=== PATIENT | female | born 1935 | race Caucasian/White ===

== ENCOUNTER → 2016-09-20 | Outpatient (CLI) | payer MEDICARE, OTHER ==
[~2016-09-20] MED LIST: ATORVASTATIN; FLEXERIL10 MG PO; LASIX; LASIX 40MG TABL40 MG PO; LASIX20 MG PO; LASIX40 MG PO; LIPITOR 10MG10 MG PO; LOTREL 10 MG-201 CAP PO; MINIPRESS2 MG PO; MOTRIN 400400 MG/TAB PO; MOTRIN 800800 MG/TAB PO; NORCO 325 MG-51 TAB PO; PERCOCET 325 MG1 TA2 PO; TIMOLOL 0.5% OP10 ML OP; TIMOLOL 0.5% OP10 ML OU; TYLENOL EXTRA500 M1 PO; minipress
== END ==
LOC: MC.RAD 13:00
DX: Z12.31 Encounter for screening mammogram for malignant neoplasm of breast (principal)
CPT/HCPCS: G0202

== ENCOUNTER 2016-10-03 15:10 | Emergency (ER) | payer MEDICARE, OTHER ==
[~2016-10-03] VITALS: Ht 165.1 cm; Wt 90.9 kg
[2016-10-03 15:19] VITALS: TEMP 97.8
[2016-10-03 17:51] VITALS: BP 143/83; PULSE 80
== END 2016-10-03 17:53 | disposition home or self-care (01) ==
LOC: COL.ER 15:10
DX: M25.552 Pain in left hip (principal); M25.562 Pain in left knee; M25.572 Pain in left ankle and joints of left foot; I10 Essential (primary) hypertension; Z87.891 Personal history of nicotine dependence; Z85.3 Personal history of malignant neoplasm of breast
CPT/HCPCS: J1885

== ENCOUNTER → 2017-09-21 | Outpatient (CLI) | payer MEDICARE, OTHER | LOC: MC.RAD 13:00 | DX: Z12.31 Encounter for screening mammogram for malignant neoplasm of breast (principal); Z90.12 Acquired absence of left breast and nipple; Z85.3 Personal history of malignant neoplasm of breast ==

== ENCOUNTER → 2018-10-29 | Outpatient (CLI) | payer MEDICARE, OTHER | LOC: MC.RAD 14:45 | DX: Z12.31 Encounter for screening mammogram for malignant neoplasm of breast (principal); Z85.3 Personal history of malignant neoplasm of breast; Z90.12 Acquired absence of left breast and nipple ==

== ENCOUNTER → 2020-01-08 | Outpatient (CLI) | payer MEDICARE, OTHER | LOC: MC.RAD 14:30 | DX: Z12.31 Encounter for screening mammogram for malignant neoplasm of breast (principal); Z85.3 Personal history of malignant neoplasm of breast; Z90.12 Acquired absence of left breast and nipple ==

== ENCOUNTER 2020-05-17 19:19 | Emergency (ER) | payer MEDICARE, OTHER ==
[~2020-05-17] VITALS: Ht 165.1 cm; Wt 90.9 kg
[2020-05-17 19:20] VITALS: TEMP 98.3
[2020-05-17 20:21] LABS: BASO # 0.1 (0.0-0.2); BASO % 0.7 % (0.0-2.0); EOS # 0.3 (0.0-0.7); EOS % 2.9 % (0-4.0); GRAN # 6.8 (1.4-6.5); GRAN % 70.7 % (42.2-75.2); HEMOGLOBIN 10.7 g/dl (12.5-16.0); LYMPH # 1.4 (1.2-3.4); MEAN CELL VOLUME 88 fl (80.0-100.0); MEAN CORPUSCULAR HEMOGLOBIN 29 pg (27.0-31.0); MEAN CORPUSCULAR HGB CONC 33 g/dl (33.0-37.0); MEAN PLATELET VOLUME 9.1 fl (7.4-10.4); MONO # 1.1 (0.1-0.6); MONO % 11.2 % (1.7-9.3); PLATELET COUNT 324 K/mm3 (130-400); RED BLOOD COUNT 3.72 M/mm3 (4.10-5.30); REDCELL DISTRIBUTION WIDTH-CV 13.8 % (11.5-14.5)
[2020-05-17 20:23] LABS: HEMATOCRIT 32.7 % (37.0-47.0)
[2020-05-17 20:36] LABS: ALANINE AMINOTRANSFERASE 15 U/L (4-34); ALBUMIN 3.9 gm/dL (3.5-5.0); ALKALINE PHOSPHATASE 89 U/L (50-136); ANION GAP 9 mmol/L (7-16); AST,SGOT 26 U/L (15-37); BILIRUBIN,TOTAL 0.3 mg/dL (0.0-1.0); BLOOD UREA NITROGEN 29 mg/dL (7-17); CALCIUM 8.7 mg/dL (8.4-10.2); CARBON DIOXIDE 25 mmol/L (22-30); CHLORIDE 103 mmol/L (98-107); CREATININE, serum 1.15 (0.52-1.25); GLUCOSE 134 mg/dL (74-106); POTASSIUM 3.7 mmol/L (3.4-5.0); SODIUM 137 mmol/L (137-145); TOTAL PROTEIN 7.1 gm/dL (6.4-8.2)
[2020-05-17 20:45] LABS: COLLECTION METHOD CLEAN CATCH
[2020-05-17 21:09] LABS: TROPONIN-I < 0.012 ng/mL (0.000-0.035)
[2020-05-17 21:19] LABS: MUCOUS Present /lpf; PH 5 (5-8); URINE APPEARANCE Hazy; URINE BACTERIA None Seen /hpf; URINE BILIRUBIN Negative (NEGATIVE); URINE BLOOD Negative (NEGATIVE); URINE COLOR Yellow; URINE GLUCOSE Negative (NEGATIVE); URINE KETONE Negative (NEGATIVE); URINE LEUKOCYTE ESTERASE Negative (NEGATIVE); URINE NITRATE Negative (NEGATIVE); URINE PROTEIN(semi-quant) Negative (NEGATIVE); URINE RBC 0-2 /hpf; URINE UROBILINOGEN Negative (NEGATIVE); URINE WBC 0-2 /hpf
[2020-05-17 23:10] VITALS: BP 148/63; PULSE 74
== END 2020-05-17 23:10 | disposition home or self-care (01) ==
LOC: COL.ER 19:19
PROVIDERS: Emergency Medicine
DX: T14.8XXA Other injury of unspecified body region, initial encounter (principal); R07.89 Other chest pain; M25.552 Pain in left hip; R41.82 Altered mental status, unspecified; I10 Essential (primary) hypertension; Z88.0 Allergy status to penicillin; Z88.2 Allergy status to sulfonamides; Z88.6 Allergy status to analgesic agent; Z87.891 Personal history of nicotine dependence; W19.XXXA Unspecified fall, initial encounter
CPT/HCPCS: Q9967

== ENCOUNTER 2020-06-21 18:12 | Inpatient (IN) | payer MEDICARE, OTHER ==
[~2020-06-21] VITALS: Ht 165.1 cm; Wt 75.0 kg
[2020-06-21 18:53] LABS: BASO # 0.1 (0.0-0.2); BASO % 0.4 % (0.0-2.0); EOS % 0.3 % (0-4.0); GRAN # 11.4 (1.4-6.5); GRAN % 83.7 % (42.2-75.2); HEMATOCRIT 34.7 % (37.0-47.0); LYMPH # 0.9 (1.2-3.4); LYMPH % 6.7 % (20.0-51.0); MEAN CELL VOLUME 88 fl (80.0-100.0); MEAN CORPUSCULAR HEMOGLOBIN 28 pg (27.0-31.0); MEAN CORPUSCULAR HGB CONC 32 g/dl (33.0-37.0); MEAN PLATELET VOLUME 9.3 fl (7.4-10.4); MONO # 1.1 (0.1-0.6); MONO % 8.4 % (1.7-9.3); PLATELET COUNT 345 K/mm3 (130-400); RED BLOOD COUNT 3.96 M/mm3 (4.10-5.30); REDCELL DISTRIBUTION WIDTH-CV 13.8 % (11.5-14.5)
[2020-06-21 19:06] LABS: ALBUMIN 4.1 gm/dL (3.5-5.0); BILIRUBIN,TOTAL 0.7 mg/dL (0.0-1.0); CALCIUM 9.3 mg/dL (8.4-10.2); CREATININE, serum 0.9 (0.52-1.25); TOTAL PROTEIN 7.7 gm/dL (6.4-8.2)
[2020-06-21 21:27] LABS: COLLECTION METHOD CLEAN CATCH
[2020-06-21 21:40] LABS: MUCOUS Present /lpf; PH 6 (5-8); SQUAMOUS EPITHELIAL 0-2 /hpf; URINE APPEARANCE Clear; URINE BACTERIA None Seen /hpf; URINE BILIRUBIN Negative (NEGATIVE); URINE BLOOD Negative (NEGATIVE); URINE COLOR Yellow; URINE GLUCOSE Negative (NEGATIVE); URINE KETONE Trace (NEGATIVE); URINE LEUKOCYTE ESTERASE Trace (NEGATIVE); URINE NITRATE Negative (NEGATIVE); URINE PROTEIN(semi-quant) Negative (NEGATIVE); URINE UROBILINOGEN Negative (NEGATIVE)
[2020-06-21 22:34] VITALS: BP 133/52; PULSE 77; TEMP 98.4
[2020-06-22 03:46] VITALS: BP 136/57; PULSE 98; TEMP 97.6
--- NOTE | 2020-06-22 03:47 | NUR ---
2215-PT ARRIVES TO FLOOR PER CART. ALERT AND O TO SELF ONLY. HX AND ASSESSMENT OBTAINED TO BEST ABILITY D/T DEMENTIA. PT ADMIT FOR WEAKNESS AND FALL/UNSAFE DC. ORDERS OBTAINED AND FOLLOWED. PT BED ALARM ON. PT WAS REPORTED TO BE DOWN AT HOME FOR 12 HRS.
[2020-06-22 07:21] LABS: BASO # 0.1 (0.0-0.2); BASO % 0.7 % (0.0-2.0); EOS # 0.2 (0.0-0.7); EOS % 1.9 % (0-4.0); GRAN # 7.3 (1.4-6.5); GRAN % 69.7 % (42.2-75.2); LYMPH # 1.7 (1.2-3.4); LYMPH % 15.7 % (20.0-51.0); MEAN CELL VOLUME 89 fl (80.0-100.0); MEAN CORPUSCULAR HGB CONC 31 g/dl (33.0-37.0); MEAN PLATELET VOLUME 10.1 fl (7.4-10.4); MONO # 1.2 (0.1-0.6); MONO % 11.6 % (1.7-9.3); PLATELET COUNT 324 K/mm3 (130-400); RED BLOOD COUNT 3.46 M/mm3 (4.10-5.30)
[2020-06-22 07:22] LABS: HEMATOCRIT 30.9 % (37.0-47.0); HEMOGLOBIN 9.7 g/dl (12.5-16.0); MEAN CORPUSCULAR HEMOGLOBIN 28 pg (27.0-31.0)
[2020-06-22 07:28] LABS: ALBUMIN 3.2 gm/dL (3.5-5.0); BILIRUBIN,TOTAL 0.5 mg/dL (0.0-1.0); CALCIUM 8.9 mg/dL (8.4-10.2); CREATININE, serum 0.87 (0.52-1.25); POTASSIUM 3.7 mmol/L (3.4-5.0); TOTAL PROTEIN 6.3 gm/dL (6.4-8.2)
[2020-06-22 08:02] VITALS: BP 134/54; PULSE 75; TEMP 97.9
--- NOTE | 2020-06-22 09:43 | NUR ---
JOHNY attended clinical rounds. The patient was difficult to rouse and would not respond to the hospitalist. SW contacted the patient's daughter, Livia Escobedo (ph#[phone]), to discuss discharge plan. The patient lives alone in [place]. Livia states that she lives in [place], but checks in the on the patient frequently. She reports that the patient needs assistance with ADLs and has a cane and scoots around in office chairs. Livia reports that the patient's hygiene is bad and that she has a difficult time making it to the bathroom on time. She does not receive a home health services. Livia reports that the patient was suppose to have an appointment with Sabra at [facility] to get assessed for services in the home, but her sister talked her out of the appointment. The patient's PCP is Dr. Taiwo Shelton and she receives her medications from [facility]. Livia reports that the patient does not have a DPOA-HC. She states that the patient's and that she has three living children: Livia, Adeline Ruffin (ph#[phone]), and Nasir Horvath. Adeline and Nasir live in [place]. JOHNY informed Livia how the patient's legal next of kin and decision makers is all three of her children. Livia verbalized understanding. Due to the patient's frequent falls and being somnolent during rounds, SW discussed post-acute rehab. JOHNY informed her how the patient could have to private pay, since she is observation. Livia verbalized understanding and would like to go ahead and send referrals to where ever can take her. JOHNY contacted and faxed a referral to [facility], and [facility]. Awaiting screens.
[2020-06-22 12:07] VITALS: BP 142/55; PULSE 69; TEMP 98
[2020-06-22 12:19] LABS: TRICYCLIC ANTIDEPRESS URINE NEGATIVE
--- NOTE | 2020-06-22 13:24 | NUR ---
Patient up to recliner. x1 assist with walker. No further needs at this time.
[2020-06-22] MEDS ORDERED: SYNTHROID0.1 MG/TAB PO (16:34)
[2020-06-22] MEDS ORDERED: CYMBALTA 30MG30 MG PO (16:35)
--- NOTE | 2020-06-22 16:50 | NUR ---
Contacted Maia Jaramillo, patients daughter brought in home meds, med req complete. Patient has hemorrhoids, new order for cream.
[2020-06-22 17:01] VITALS: BP 136/65; PULSE 68; TEMP 98.1
--- NOTE | 2020-06-22 18:02 | NUR ---
Patient has done better this afternoon, has been more alert and oriented. Sat up in recliner throughout the day. Patient has been up to BSC multiple times. Patient denies pain or further needs at this time. Will report off to mash tub cooker operator.
--- NOTE | 2020-06-22 20:00 | NUR ---
Report received, assumed care for machine taper. Assessment complete. A&O to self-confused converstation. States she just wants to go home. Rating pain to bilat hips 8/10 on pain scale-described as ache-offered tylenol-states it doesnt work. Hospitalist JEANETTE Singh notified and new orders placed. Denies nausea/shortness of breath. Plan of care discussed for this shift to include HS meds/pain control/calling for questions/concerns. Verbalizes understanding denies needs. Call light in reach. Will monitor.
[2020-06-22 20:02] VITALS: BP 149/69; PULSE 85; TEMP 98.2
--- NOTE | 2020-06-22 21:44 | NUR ---
Motrin/tylenol given per dr order for bilat hip pain rated 6/10 on pain scale described as constant ache.
[2020-06-23 20:00] VITALS: BP 146/58; PULSE 64; TEMP 98
--- NOTE | 2020-06-23 20:00 | NUR ---
Report received, assumed care for welder 2nd shift. Assessment complete. VS stable. A&Ox3-some confused conversation. Denies pain/nausea/shortness of breath. Purewick in place-huy care provided. Plan of care discussed for this shift to include HS meds/pain control/calling for questions/concerns. Verbalizes understanding/denies needs. Call light in reach. Will monitor.
[2020-06-24] VITALS (7 sets, daily range): BP systolic 132–160; BP diastolic 52–73; PULSE 65–83; TEMP 97.3–98.6
--- NOTE | 2020-06-24 02:00 | NUR ---
Called with c/o hip pain. Rating pain 8/10 on pain scale-described as constant throbbing. Rhododendron given per dr order. Repositioned in bed with pillow support. Call light in reach. Will monitor.
--- NOTE | 2020-06-24 04:45 | NUR ---
Called with c/o pain to right hip. Rating pain 4/10 on pain scale-described as constant throbbing. Motrin given per dr order. Repositioned in bed. Will monitor.
[2020-06-24 06:47] LABS: HEMOGLOBIN 10.1 g/dl (12.5-16.0); MEAN CELL VOLUME 89 fl (80.0-100.0); MEAN CORPUSCULAR HEMOGLOBIN 28 pg (27.0-31.0); MEAN CORPUSCULAR HGB CONC 32 g/dl (33.0-37.0); MEAN PLATELET VOLUME 10.2 fl (7.4-10.4); PLATELET COUNT 308 K/mm3 (130-400); RED BLOOD COUNT 3.59 M/mm3 (4.10-5.30)
[2020-06-24 06:55] LABS: HEMATOCRIT 31.9 % (37.0-47.0)
[2020-06-24 07:02] LABS: ALBUMIN 3.2 gm/dL (3.5-5.0); BILIRUBIN,TOTAL 0.3 mg/dL (0.0-1.0); CALCIUM 8.7 mg/dL (8.4-10.2); CREATININE, serum 1.07 (0.52-1.25); POTASSIUM 4.2 mmol/L (3.4-5.0); TOTAL PROTEIN 6.3 gm/dL (6.4-8.2)
--- NOTE | 2020-06-24 08:52 | NUR ---
*Late entry-06/23/20* JOHNY attended clinical rounds. The patient's status was changed to inpatient. JOHNY then met with the patient to discuss rehab. The patient is agreeable to rehab. SW also discussed a DPOA-HC. The patient states that she likes the idea that all three of her children have to come to a mutual agreement, if she does not have one done. The patient was interested in obtaining a DPOA-HC form though. JOHNY provided. The patient would like to talk to her children first, before pursuing completing a DPOA-HC. JOHNY contacted and faxed updates to [facility] and [facility]. JOHNY consulted IPR Director, Jessica. JOHNY contacted and updated the patient's daughter, Adeline.
--- NOTE | 2020-06-24 09:24 | NUR ---
Patient resting in recliner, call light in reach and alarm set. Patient is forgetful, but A&OX3 not remembering what month it was. Patient in a pleasent mood at this time. Patient denies pain at this time. Will continue to monitor.
--- NOTE | 2020-06-24 09:35 | NUR ---
0645-PUREWICK IN PLACE,BUT PT's bed wet and attends; pt. states she needs to void and suction on;pt. cleaned and up to chair for meal. Hands and face washed; max to comb hair-pt. states her hands hurt from arthritis.
--- NOTE | 2020-06-24 11:17 | NUR ---
SW faxed therapy notes and updates to [facility] and [facility].
[2020-06-24 15:48] LABS: CALCIUM 8.6 mg/dL (8.4-10.2); CREATININE, serum 0.96 (0.52-1.25); POTASSIUM 3.7 mmol/L (3.4-5.0)
--- NOTE | 2020-06-24 15:53 | NUR ---
Anurag, at [facility], reports that they are able to accept tomorrow or Sunday and that they received auth from the patient's insurance. Carol, at [facility], reports that they have also submitted for auth. JOHNY contacted and updated the patient's daughter, Livia. Livia is hopeful that [facility] can take. JOHNY informed Livia that if [facility] cannot, then we would be looking at the patient going to [facility]. Livia verbalized understanding.
--- NOTE | 2020-06-24 20:10 | NUR ---
Medicated with HS meds including Sulphur for pain to left hip. Removed lidoderm patch. Assisted to BSC with one, gait belt and walker. Was incontinent of urine prior to getting up. Back to bed with bed alarm on.
--- NOTE | 2020-06-24 20:15 | NUR ---
Patient was seen by therapy this morning. Patient reports pain to her left hip and pain patch was placed to that area. Patient was given prn motrin through the day and it her pain seemed like it was managed well until this evening. Patient is very forgetful and would get up from her recliner without using her call light multiple times during the shift. Patient was redirected and would stay in a pleasent mood. Patient curently resting in bed, call light in reach and bed alarm set. Reported off to night nurse.
--- NOTE | 2020-06-24 22:00 | NUR ---
Medicated with Tylenol 650mg po for left hip pain.
--- NOTE | 2020-06-24 23:00 | NUR ---
Pt impulsive, setting off bed alarm. Assisted with ambulation in hallway with gait belt and walker, does well with one person. Back to bed and appears sleepy.
[2020-06-25 00:05] LABS: BASO # 0.1 (0.0-0.2); BASO % 0.6 % (0.0-2.0); EOS # 0.4 (0.0-0.7); EOS % 3.7 % (0-4.0); GRAN # 6.8 (1.4-6.5); GRAN % 66.6 % (42.2-75.2); HEMATOCRIT 30.3 % (37.0-47.0); HEMOGLOBIN 9.8 g/dl (12.5-16.0); LYMPH # 1.7 (1.2-3.4); LYMPH % 16.8 % (20.0-51.0); MEAN CELL VOLUME 89 fl (80.0-100.0); MEAN CORPUSCULAR HEMOGLOBIN 29 pg (27.0-31.0); MEAN CORPUSCULAR HGB CONC 32 g/dl (33.0-37.0); MEAN PLATELET VOLUME 9.9 fl (7.4-10.4); MONO # 1.2 (0.1-0.6); MONO % 11.9 % (1.7-9.3); PLATELET COUNT 306 K/mm3 (130-400); REDCELL DISTRIBUTION WIDTH-CV 13.8 % (11.5-14.5)
--- NOTE | 2020-06-25 00:55 | NUR ---
Medicated with [place] 1 tab for left hip pain and dose of Melatonin 9mg po at this time. Pt continues to holler out and set bed alarm off with attempting to get out of bed on own.
--- NOTE | 2020-06-25 01:30 | NUR ---
MOTRIN 600MG PO GIVEN AT THIS TIME FOR CONTINUED LEFT HIP PAIN.
--- NOTE | 2020-06-25 05:00 | NUR ---
HAS RESTED WELL WITH MELATONIN. PUREWICK IS OUT, DEPENDS ARE ON.
[2020-06-25 06:08] VITALS: BP 151/58; PULSE 79; TEMP 97.6
--- NOTE | 2020-06-25 06:14 | NUR ---
Medicated with scheduled AM Synthroid, [place] for pain to left hip. Depends changed d/t incontinence.
[2020-06-25 07:57] VITALS: BP 167/88; PULSE 72; TEMP 98.4
--- NOTE | 2020-06-25 08:20 | NUR ---
Patient alert and oriented, answers questions appropriately, some responses delayed but correct. See assessment. Ambulates with assist x1 with FWW and gait belt, gait steady. No c/o pain or discomfort.
[2020-06-25] MEDS ORDERED: TYLENOL 325MG325 MG PO (10:28)
[2020-06-25] MEDS ORDERED: MOTRIN 400400 MG/TAB PO (10:28)
[2020-06-25] MEDS ORDERED: ANUSOL-HC2.5% TOP (10:29)
[2020-06-25] MEDS ORDERED: BLUE-EMU LIDOC1 EACH TP (10:29)
[2020-06-25] MEDS ORDERED: LASIX 20MG TABL20 MG PO (10:31)
--- NOTE | 2020-06-25 10:50 | NUR ---
JOHNY followed up with Carol at [facility]. Carol reports that they have not heard back from insurance yet. JOHNY then met with the patient and her daughter, Livia, to update. Livia has concerns about [facility] and would really prefer [facility]. The patient states that she would prefer [facility] and was agreeable to go to [facility]. JOHNY updated [facility]. Carol, at [facility], reports that they are able to accept the patient and are able to take the patient without having the prior auth yet. She states that the auth is pending still, because the other facility has already submitted and received it. They could re-submit for auth after the other facility canceled it. JOHNY updated the patient and her daughter, Livia. The patient states that she would prefer [facility]. Livia would also like to pursue with [facility]. JOHNY contacted Anurag at [facility] and requested that they cancel their auth. Anurag reports that she will inform their business office. JOHNY updated Carol at [facility]. JOHNY updated the clinical team.
[2020-06-25 11:37] VITALS: BP 167/88; PULSE 72; TEMP 98.4
[2020-06-25 12:17] VITALS: BP 119/56; PULSE 73; TEMP 97.7
--- NOTE | 2020-06-25 13:22 | NUR ---
Patient transfered to [facility] via wheelchair with transportation staff at 1320. Paperwork sent. Report called to
--- NOTE | 2020-06-25 13:30 | NUR ---
The patient is to discharge today, 06/25, to [facility] for a skilled stay. Transportation was scheduled at 1300, via [facility]. JOHNY informed the patient's RN and her daughter, Livia. They were all agreeable to the time. No additional needs at this time.
== END 2020-06-25 13:20 | DRG 93 ==
LOC: COL.ER 18:12 → MEDICAL 21:24 → SURG 22:18
PROVIDERS: Family Medicine; Student in an Organized Health Care Education/Training Program; ADMIT Hospitalist
DX: G92 Toxic encephalopathy (principal); R52 Pain, unspecified; T40.605A Adverse effect of unspecified narcotics, initial encounter; R53.1 Weakness; D64.9 Anemia, unspecified; I10 Essential (primary) hypertension; D72.829 Elevated white blood cell count, unspecified; E03.9 Hypothyroidism, unspecified; Z20.822 Contact with and (suspected) exposure to COVID-19; F32.9 Major depressive disorder, single episode, unspecified; M19.90 Unspecified osteoarthritis, unspecified site; F41.9 Anxiety disorder, unspecified; R53.81 Other malaise; W19.XXXA Unspecified fall, initial encounter; F17.210 Nicotine dependence, cigarettes, uncomplicated; E78.5 Hyperlipidemia, unspecified; Y92.009 Unspecified place in unspecified non-institutional (private) residence as the place of occurrence of the external cause; Y93.9 Activity, unspecified; Z85.3 Personal history of malignant neoplasm of breast; Z90.710 Acquired absence of both cervix and uterus; Z88.0 Allergy status to penicillin; Z88.2 Allergy status to sulfonamides; Z88.6 Allergy status to analgesic agent; Z91.81 History of falling
CPT/HCPCS: 99232-AI; 99239; G0378; J0696; J1650; J7030

== ENCOUNTER → 2020-08-05 | Outpatient (CLI) | payer MEDICARE, OTHER ==
[~2020-08-05] MED LIST changes: +ANUSOL HC CREAM30 GM TP; +ANUSOL-HC2.5% TOP; +ASPI325T6 PO; +ASPIRIN E.C. 8181 MG PO; +BLUE-EMU LIDOC1 EACH TP; +CYMBALTA 30MG30 MG PO; +DECADRON6 MG PO; +IBU400 MG PO; +LASIX 20MG TABL20 MG PO; +LIDO2%JEL30 TOP; +LIPITOR20 MG PO; +PLAVIX 75MG TAB75 MG PO; +SENOKOT S 50 MG1 TAB PO; +SYNTHROID0.1 MG/TAB PO; +TYLENOL 325MG325 MG PO; +TYLENOL 500MG500 MG PO; +ULTRAM 50MG TAB50 MG PO
--- NOTE | 2020-08-10 08:46 | NUR ---
Patient admitted to room 6 with use of walker and oriented to room. Voices understanding of surgery and consent signed. Daughter in room. Medication list reviewed and patient states that she has been taking Motrin 400mg po every 6 hours for left hip pain. Dr. Chung notitied. Will cancel surgery and Dr. Chung will come and talk to the patient and daughter.
--- NOTE | 2020-08-10 09:30 | NUR ---
Dr. Chung here to talk with the patient and daughter. Informed the patient that surgery will be cancelled due to not stopping Motrin. Dr Chung answered all questions. Patient maybe discharged to home and the office will call with follow surgery date.
--- NOTE | 2020-08-10 09:35 | NUR ---
Patient assisted with dressing and assisted into wheelchair. Taken to the front door per wheelchair and assisted into vehicle driven by daugbasim.
== END ==
LOC: COL.LAB 08:00 → INPTSU 08-10 08:07 → SURG 08-10 08:07 → INPTSU 08-10 09:35 → SURG 08-10 11:00 → EDSTATUS 08-10 11:00
DX: Z01.812 Encounter for preprocedural laboratory examination (principal); Z20.822 Contact with and (suspected) exposure to COVID-19
CPT/HCPCS: OP

== ENCOUNTER → 2020-08-09 | Outpatient (CLI) | payer MEDICARE, OTHER | LOC: COL.LAB 10:41 | DX: Z01.812 Encounter for preprocedural laboratory examination (principal); K64.1 Second degree hemorrhoids; I12.9 Hypertensive chronic kidney disease with stage 1 through stage 4 chronic kidney disease, or unspecified chronic kidney disease; N18.32 Chronic kidney disease, stage 3b; E03.9 Hypothyroidism, unspecified; R29.6 Repeated falls; D64.9 Anemia, unspecified; M16.12 Unilateral primary osteoarthritis, left hip; M89.49 Other hypertrophic osteoarthropathy, multiple sites; Z85.3 Personal history of malignant neoplasm of breast ==

== ENCOUNTER 2020-08-11 10:16 | Inpatient (IN) | payer MEDICARE, OTHER ==
[~2020-08-11] VITALS: Ht 167.6 cm; Wt 75.4 kg
[~2020-08-11 10:16] MED LIST changes: -ANUSOL HC CREAM30 GM TP; -ASPI325T6 PO; -ASPIRIN E.C. 8181 MG PO; -DECADRON6 MG PO; -IBU400 MG PO; -LIDO2%JEL30 TOP; -LIPITOR20 MG PO; -PLAVIX 75MG TAB75 MG PO; -SENOKOT S 50 MG1 TAB PO; -TYLENOL 500MG500 MG PO; -ULTRAM 50MG TAB50 MG PO
[2020-08-16] VITALS (11 sets, daily range): BP systolic 130–163; BP diastolic 54–81; PULSE 69–87; TEMP 96.9–98.4
--- NOTE | 2020-08-16 06:22 | NUR ---
TO RM 8 PER WC BY NURSING. ASSISTED WITH TRANSFER TO BED AND ASSISTED TO CHANGE IN HOSPITAL GOWN. ALERT ORIENTED X3, VERBALIZED UNDERSTANDING AND SIGNED CONSENT.
[2020-08-16] MEDS ORDERED: TYLENOL 500MG500 MG PO (06:23)
[2020-08-16] MEDS ORDERED: ANUSOL HC CREAM30 GM TP (06:25)
[2020-08-16] MEDS ORDERED: IBU400 MG PO (06:26)
[2020-08-16] MEDS ORDERED: LOTREL 10 MG-201 CAP PO (06:28)
[2020-08-16] MEDS ORDERED: LASIX 40MG TABL40 MG PO (06:30)
--- NOTE | 2020-08-16 10:55 | NUR ---
PATIENT ADMITED INTO ROOM 325 POST OP LTH. PATIENT ORIENTED TO PERSON BUT DISPLAYS CONFUSION, ASKING THE SAME QUESTIONS OVER AND OVER. PATIENT HAS HX OF DEMENTIA. FAMILY AT BEDSIDE. VSS. PATIENT DROWSY AND RESTING COMFORTABLY. DRESSING TO LLE IS CD&I AND ICE PACK INPLACE. TEDS & SCD'S TO BLE. HEAD TO TOE ASSESSMENT COMPLETED BY ERICKA STUDENT & NURSE, SEE STUDENT CHARTING. ORIENTED TO ROOM. CALL LIGHT IN REACH. BED ALARM ON.
--- NOTE | 2020-08-16 20:48 | NUR ---
Pt. laying in bed with eyes closed, respirations equal and unlabored. Pt. does open eyes to verbal stimuli. Vitals stable. Pt. falls back to sleep quickly after being woke. Shift assessment complete. INT to rt. hand patent. Pt. does not appear to be in pain per FLACC. Call light within reach.
[2020-08-17 04:21] VITALS: BP 144/59; PULSE 81; TEMP 97.6
[2020-08-17 07:24] LABS: HEMOGLOBIN 10.3 g/dl (12.5-16.0)
[2020-08-17 07:27] LABS: HEMATOCRIT 32.9 % (37.0-47.0)
[2020-08-17 08:00] VITALS: BP 120/50; PULSE 82; TEMP 98.5
--- NOTE | 2020-08-17 08:00 | NUR ---
AGREE WITH CAPSTONE STUDENT ASSESSMENT, SEE CHARTING.
--- NOTE | 2020-08-17 08:00 | NUR ---
PATIENT DROWSY BUT EASILY AWOKEN. PATIENT IS ALSO CONFUSED, REPEATS SELF, AND NEEDS TO BE REORIENTED FREQUENTLY. VSS. NO COMPLAINTS OF PAIN OR N/V AT THIS TIME. MORNING MEDS PASSED. HEAD TO TOE ASSESSMENT COMPLETED. LUNG SOUNDS ARE CLEAR IN ALL LOBES. HEART SOUNDS ARE REGULAR AND NORMAL. BOWEL SOUNDS ARE ACTIVE IN ALL FOUR QUADRANTS. PATIENT DENIES ANY PAIN OR TENDERNESS IN THE LOWER EXTREMITIES. NO REDNESS OR ABNORMAL WARMTH IN THE CALVES. PATIENT IS ABLE TO WIGGLE TOES AND FEEL TOUCH ON OPERATIVE LEFT LEG. DRESSING IS CLEAN DRY AND INTACT ON LEFT HIP. AARTI HOSE AND SCDS IN PLACE. WILL CONTINUE TO MONITOR. BED LEFT IN THE LOWEST POSITION AND CALL LIGHT LEFT WITHIN REACH.
[2020-08-17 12:04] VITALS: BP 96/43; PULSE 76; TEMP 97.8
--- NOTE | 2020-08-17 12:24 | NUR ---
First visit from the flight kitchen manager. No needs right now.
--- NOTE | 2020-08-17 12:26 | NUR ---
Evaluation Analyst attempted to meet with patient to discuss discharge planning, however patient was sleeping and did not wake when SW entered her room. JOHNY contacted patient's daughter, Livia (ph#[phone]) to discuss discharge planning. Patient lives alone in [place], however has family that check in on her often. Patient sees Dr. Shelton for primary care and obtains most medications from the [facility] program. Patient also obtains medications from [facility] as needed. Patient has a walker at home and Livia reports patient was mostly independent with ADLS. JOHNY reviewed PT/OT recommendation for post acute rehab. Livia is in agreement and advised she discussed this with the patient and her sister last week. Livia advised their preferences are 1) [place] and 2)[facility]. JOHNY then contacted patient's other daughter, Adeline to review discharge plan. Adeline confirmed the above preferences. Adeline states patient does not have Advance Directives but this is something they have tried to convince patient to complete these. JOHNY to follow up. JOHNY faxed referrals to [facility] and [facility]. JOHNY also faxed to [facility] for authorization.
[2020-08-17 16:38] VITALS: BP 128/51; PULSE 85; TEMP 97.7
--- NOTE | 2020-08-17 18:00 | NUR ---
PATIENT SLEPT MOST OF THE DAY AWAY. SHE WAS VERY TIRED TODAY. PATIENT NOW C/O PAIN IN LLE. GAVE PRN PAIN MEDS. PATIENT ALSO NOTED TO BE INCONTINENT OF URINE. COMPLETE BED CHANGE DONE AND PATIENT REPOSITIONED TO COMFORT. CALL LIGHT IN REACH. BED ALARM ON. PATIENT ORIENTED X2 BUT STILL DISPLAYS OCCATIONAL CONFUSION/FORGETFULNESS.
[2020-08-17 20:18] VITALS: BP 125/47; PULSE 86; TEMP 98.3
--- NOTE | 2020-08-17 21:33 | NUR ---
Patient eating dinner upon enter the room. Shift assessment completed. Patient A/O x2. Patient denies any pain or discomfort. Denies SOB or N/V. Left hip area occlusive dressing C/D/I. NS running at 100ml/hr via right hand. All scheduled meds given per JUN. Call light within reach. Patient denies any needs at this time.
[2020-08-18 00:41] VITALS: BP 136/53; PULSE 85; TEMP 97.5
[2020-08-18 04:41] VITALS: BP 126/94; PULSE 75; TEMP 98
--- NOTE | 2020-08-18 05:23 | NUR ---
Patient slept well throughout the shift. PRN Oxycodone given once at 23:16 pm for left hip pain 10/07. Changed incontinent brief x1 around midnight. New Purewick applied and 450ml output at 0500. VS remains stable. Call light within reach. Will give report to day shift nurse.
[2020-08-18 07:32] LABS: HEMATOCRIT 28.8 % (37.0-47.0)
[2020-08-18 07:47] VITALS: BP 141/52; PULSE 83; TEMP 99.1
--- NOTE | 2020-08-18 08:10 | NUR ---
PT RESTING IN BED. INTERMITTANTLY MILDLY CONFUSED. ERMA REID ROUNDED ON PT THIS AM. PLAN ON [facility] DRESSING TO LEFT HIP CDI WITH BULKY DRESSING INPLACE. PURE WICK CATHETER DRAINING CLEAR YELLOW URINE WITH BREIFS INPLACE. PT REPORTING PAIN 8/10. PO PAIN MEDS GIVEN PER ORDERS. PT EATING AND DRINKING IV TO INT THIS AM.
[2020-08-18 11:14] VITALS: BP 99/46; PULSE 71; TEMP 97.5
--- NOTE | 2020-08-18 13:46 | NUR ---
Deboner faxed clinical updates to [facility] and [facility]. SW also received a phone message from [employer] advising that patient's authorization for SNF was approved (ref#[id number]). JOHNY spoke with Peewee at [facility] who advised they can accept referral. JOHNY met with patient who is agreeable to discharge to [facility], likely tomorrow. JOHNY spoke with patient about DPOA-HC and she advised she does not want to complete DPOA-HC at this time. JOHNY contacted both of patient's daughters, Livia and Adeline to provide update on discharge. Both are in agreement with plan to discharge to [facility]. JOHNY contacted Carol at [facility] to notify her that first preference can accept. Discharge Plan: [facility].
[2020-08-18 15:32] VITALS: BP 139/54; PULSE 79; TEMP 97.4
--- NOTE | 2020-08-18 16:15 | NUR ---
INCONTINENT CARE PROVIDED TO PT. PURE WICK PLACED PER PROTOCOL. PT TOLERATED WELL.
--- NOTE | 2020-08-18 20:15 | NUR ---
Pt. sitting up in bed. Pt. is alert and mildly confused. Pt. is aware she is in the hospital, but also tells this nurse not to let the dogs get out. Shift assessment complete. Dressing to lt. hip CDI. Pt. reports pain at a 4 on pain scale and would like pain medication. Pt. denies further needs.
[2020-08-18 21:03] VITALS: BP 123/48; PULSE 78; TEMP 98.4
[2020-08-19 00:09] VITALS: BP 121/52; PULSE 80; TEMP 97
[2020-08-19 03:48] VITALS: BP 125/52; PULSE 81; TEMP 97
[2020-08-19] MEDS ORDERED: ASPI325T6 PO (06:52)
[2020-08-19] MEDS ORDERED: NORCO 325 MG-51 TAB PO (06:52)
[2020-08-19] MEDS ORDERED: SENOKOT S 50 MG1 TAB PO (06:53)
[2020-08-19] MEDS ORDERED: ULTRAM 50MG TAB50 MG PO (06:53)
[2020-08-19 08:00] VITALS: BP 133/54; PULSE 84; TEMP 98.3
--- NOTE | 2020-08-19 08:00 | NUR ---
PATIENT IS ORIENTED X2 BUT DISPLAYS OCCATIONAL CONFUSION/FORGETFULNESS. PATIENT HAS HX OF DEMENTIA. VSS. DENIES PAIN AT REST. LEFT HIP DRESSING IS CD&I WITH AQUACEL AND ICE PACK INPLACE. TEDS & SCD'S CURRENTLY OFF. POSITIVE PEDAL PULSES. HEAD TO TOE ASSESSMENT COMPLETE. STUDENT NURSE WORKING WITH PATIENT, SEE CHARTING. RIGHT WRIST IV TO INT. NO C/O N/V. TOLERATING GENERAL DIET. 2 MAX ASSIST. PT/OT. PATIENT PLANNING TO DISCHARGE TO [facility] LATER TODAY. NO OTHER NEEDS AT THIS TIME. CALL LIGHT IN REACH.
--- NOTE | 2020-08-19 10:57 | NUR ---
Patient is ready for discharge to SNF today. JOHNY coordinated with Peewee from [facility] to set transport time for 1300. JOHNY faxed discharge orders and negative COVID test to [facility]. JOHNY notified patient and her daughter, Adeline of transport time. JOHNY left a message for patient's other daughter, Livia. Discharge Plan: Patient to discharge to [facility] today.
--- NOTE | 2020-08-19 13:30 | NUR ---
PATIENT DISCHARGING HOME VIA WC WITH [facility]. GAVE INFO PACKET TO CONTACT ACID PLANT OPERATOR. ATTEMPTED TO CALL REPORT TO [facility] NURSE, LEFT MESSAGE WITH PHONE NUMBER. STUDENT NURSE DC'D RIGHT WRIST IV AND COVERED SITE WITH [employer]ZE [employer]. PATIENT DRESSED AND PERSONAL BELONGINGS SENT WITH DAUGHTER.
== END 2020-08-19 13:30 | DRG 470 ==
LOC: INPTSU 08-16 05:20 → SURG 08-16 07:30
PROVIDERS: ADMIT Orthopaedic Surgery
PROC: 0SRB04A Replacement of Left Hip Joint with Ceramic on Polyethylene Synthetic Substitute, Uncemented, Open Approach (ICD-10-PCS; principal; 2020-08-16 07:30)
DX: M16.12 Unilateral primary osteoarthritis, left hip (principal); N18.30 Chronic kidney disease, stage 3 unspecified; I12.9 Hypertensive chronic kidney disease with stage 1 through stage 4 chronic kidney disease, or unspecified chronic kidney disease; M17.12 Unilateral primary osteoarthritis, left knee; R41.0 Disorientation, unspecified; Z20.822 Contact with and (suspected) exposure to COVID-19; Z85.3 Personal history of malignant neoplasm of breast; Z88.0 Allergy status to penicillin; Z88.2 Allergy status to sulfonamides; Z88.6 Allergy status to analgesic agent; E78.5 Hyperlipidemia, unspecified; F32.9 Major depressive disorder, single episode, unspecified; Z86.73 Personal history of transient ischemic attack (TIA), and cerebral infarction without residual deficits
CPT/HCPCS: A4314; A9284; C1713; C1776; J0690; J2250; J2270; J2405; J2704; J3010; J7030; J7120

== ENCOUNTER 2020-10-11 10:24 | Day surgery (SDC) | payer MEDICARE, OTHER ==
[~2020-10-11] VITALS: Ht 165.1 cm; Wt 73.7 kg
[~2020-10-11 10:24] MED LIST changes: +ANUSOL HC CREAM30 GM TP; +ASPI325T6 PO; +IBU400 MG PO; +SENOKOT S 50 MG1 TAB PO; +TYLENOL 500MG500 MG PO; +ULTRAM 50MG TAB50 MG PO
[2020-10-11 11:38] VITALS: BP 138/52; PULSE 70; TEMP 98.3
[2020-10-11] MEDS ORDERED: LIDO2%JEL30 TOP (13:08)
--- NOTE | 2020-10-11 13:48 | NUR ---
Report received from [facility] CASHIER[facility]aveh. Pt to return to [place] [facility]. Daughter present in room and spoke with Dr Monterroso post surgery.
[2020-10-11 13:50] VITALS: BP 148/53; PULSE 79; TEMP 97.4
--- NOTE | 2020-10-11 13:50 | NUR ---
Pt returned via cart to [place] [facility]. Drowsy but easily arousable and holding conversation with staff and family. VSS-see flowsheet. IV patent with IVF infusing. Pt denies nausea, pain or other complaints. Pt has water at bedside and daughters present. Call light in reach. Pt aware of POC for BMP and CT with contrast. Packing in place with mesh underwear in place.
--- NOTE | 2020-10-11 13:55 | NUR ---
Lab present at bedside to obtain ordered BMP, needed prior to CT with contrast ordered. CT staff notified pt back in [place] 1 from PACU and labs being obtained at this time.
[2020-10-11 14:05] VITALS: BP 144/54; PULSE 79
[2020-10-11 14:20] VITALS: BP 157/53; PULSE 80; TEMP 99
[2020-10-11 14:22] LABS: CALCIUM 9.1 mg/dL (8.4-10.2); CREATININE, serum 0.88 (0.52-1.25); POTASSIUM 3.8 mmol/L (3.4-5.0)
--- NOTE | 2020-10-11 14:23 | NUR ---
Pt up to wheelchair x2 assist to stand and pivot. Pt wheeled to bathroom and able to void. Back to cart in bay1. Waiting to hear from CT once labs are resulted.
--- NOTE | 2020-10-11 15:43 | NUR ---
Pt assisted for second time to void. After voiding, sitz bath completed and packing removed. Bleeding appeared to be controlled and new brief placed. Pt dressed and IV removed with pressure dressing applied. [facility] staff notified pts ready for transportation back to facility. Report given to [employer] who will assume care for pt upon return to [facility].
--- NOTE | 2020-10-11 15:55 | NUR ---
Pt given discharge packet to provide to nursing staff at [facility]. Pt taken via wheelchair to private vehicle for dc by [facility] transportation.
== END 2020-10-11 15:57 | disposition home or self-care (01) ==
LOC: SDCO 10:24
PROVIDERS: Surgery
DX: C21.8 Malignant neoplasm of overlapping sites of rectum, anus and anal canal (principal); K62.89 Other specified diseases of anus and rectum; K62.5 Hemorrhage of anus and rectum; I10 Essential (primary) hypertension; M19.90 Unspecified osteoarthritis, unspecified site; N18.9 Chronic kidney disease, unspecified; E03.9 Hypothyroidism, unspecified; D64.9 Anemia, unspecified; E78.5 Hyperlipidemia, unspecified; F32.9 Major depressive disorder, single episode, unspecified; Z87.891 Personal history of nicotine dependence; Z79.890 Hormone replacement therapy; Z79.899 Other long term (current) drug therapy; Z86.73 Personal history of transient ischemic attack (TIA), and cerebral infarction without residual deficits; Z90.710 Acquired absence of both cervix and uterus; Z90.49 Acquired absence of other specified parts of digestive tract
CPT/HCPCS: J1100; J2405; J2704; J3010; J7120; Q9967

== ENCOUNTER 2021-03-02 22:54 | Inpatient (IN) | payer MEDICARE, OTHER ==
[~2021-03-02] VITALS: Wt 71.9 kg
[~2021-03-02 22:54] MED LIST changes: +LIDO2%JEL30 TOP
[2021-03-02 23:59] LABS: HEMOGLOBIN 10.9 g/dl (12.5-16.0); MEAN CELL VOLUME 91 fl (80.0-100.0); MEAN CORPUSCULAR HEMOGLOBIN 29 pg (27.0-31.0); MEAN CORPUSCULAR HGB CONC 32 g/dl (33.0-37.0); MEAN PLATELET VOLUME 9.4 fl (7.4-10.4); PLATELET COUNT 135 K/mm3 (130-400); RED BLOOD COUNT 3.77 M/mm3 (4.10-5.30); REDCELL DISTRIBUTION WIDTH-CV 21.5 % (11.5-14.5)
[2021-03-03 00:02] LABS: HEMATOCRIT 34.3 % (37.0-47.0)
[2021-03-03 00:18] LABS: ALBUMIN 3.2 gm/dL (3.4-4.8); CALCIUM 8.6 mg/dL (8.4-10.2); CREATININE, serum 0.99 mg/dL (0.57-1.11); POTASSIUM 3.8 mmol/L (3.5-4.5); TOTAL PROTEIN 6.8 gm/dL (6.2-8.1)
[2021-03-03 00:20] LABS: BAND 30 % (0-10); BASOPHIL 1 % (0-2); LYMPHOCYTE 4 % (20.0-51.0); NEUTROPHILS 61 % (42.0-75.2)
[2021-03-03 00:21] LABS: PLATELET ESTIMATE NORMAL (NORMAL)
[2021-03-03 00:22] LABS: HYPOCHROMIA 1+; OVALOCYTES 1+; POIKILOCYTOSIS 1+; SCHISTOCYTES 1+
[2021-03-03 00:27] LABS: TROPONIN-I 0.183 ng/mL (0.00-0.033)
[2021-03-03 00:45] LABS: BILIRUBIN,TOTAL 0.4 mg/dL (0.2-1.2)
[2021-03-03 00:57] LABS: COLLECTION METHOD CLEAN CATCH
[2021-03-03 01:03] LABS: MUCOUS Present /lpf; PH 6 (5-8); SQUAMOUS EPITHELIAL 0-2 /hpf; URINE APPEARANCE Clear; URINE BACTERIA None Seen /hpf; URINE BILIRUBIN Negative (NEGATIVE); URINE BLOOD Negative (NEGATIVE); URINE COLOR Yellow; URINE GLUCOSE Negative (NEGATIVE); URINE KETONE Negative (NEGATIVE); URINE LEUKOCYTE ESTERASE Negative (NEGATIVE); URINE NITRATE Negative (NEGATIVE); URINE PROTEIN(semi-quant) 1+ (NEGATIVE); URINE RBC 0-2 /hpf
[2021-03-03] MEDS ORDERED: ULTRAM 50MG TAB50 MG PO (01:23)
[2021-03-03 01:54] LABS: C-REACTIVE PROTEIN 9.77 mg/dL (0.00-0.50)
[2021-03-03 02:38] LABS: INR 1.2 (0.8-3.0); PROTHROMBIN TIME 12.8 SECONDS (9.7-12.8)
[2021-03-03 12:30] VITALS: BP 137/45; PULSE 57; TEMP 97.6
--- NOTE | 2021-03-03 13:50 | NUR ---
PT ADMITTED FROM ED. PT ASLEEP IN BED. BREATHING REG/UNLABORED. CALL GERBER IN REACH. PATIENT UNABLE TO ANSWER QUESTIONS AT THE MOMENT. PT ASLEEP AND DIFFICULT TO AROUSE. BED ALARM ON. WILL CONTINUE TO MONITOR
[2021-03-03 16:23] VITALS: BP 118/62; PULSE 56; TEMP 98
--- NOTE | 2021-03-03 17:12 | NUR ---
PT COME UP FROM ER TO FLOOR THIS AFTERNOON. PT ASLEEP IN BED. BREATHING REG/UNLABORED. CALL GERBER IN REACH. BED ALARM ON
[2021-03-03 20:04] VITALS: BP 128/50; PULSE 60; TEMP 97.7
[2021-03-04 00:17] VITALS: BP 153/58; BP 167/62; PULSE 53; TEMP 97.5
[2021-03-04 04:41] VITALS: BP 166/61; PULSE 54; TEMP 97.7
[2021-03-04 06:41] LABS: MEAN CELL VOLUME 88 fl (80.0-100.0); MEAN CORPUSCULAR HEMOGLOBIN 28 pg (27.0-31.0); MEAN CORPUSCULAR HGB CONC 32 g/dl (33.0-37.0); MEAN PLATELET VOLUME 9.6 fl (7.4-10.4); PLATELET COUNT 144 K/mm3 (130-400); RED BLOOD COUNT 3.54 M/mm3 (4.10-5.30); REDCELL DISTRIBUTION WIDTH-CV 21.4 % (11.5-14.5)
[2021-03-04 07:06] LABS: ALBUMIN 2.8 gm/dL (3.4-4.8); BILIRUBIN,TOTAL 0.3 mg/dL (0.2-1.2); CALCIUM 8.8 mg/dL (8.4-10.2); CREATININE, serum 0.85 mg/dL (0.57-1.11); POTASSIUM 3.4 mmol/L (3.5-4.5); TOTAL PROTEIN 6.1 gm/dL (6.2-8.1)
[2021-03-04 08:01] LABS: PATHOLOGY DIFF REVIEW OK
[2021-03-04 08:04] VITALS: BP 163/69; PULSE 61; TEMP 96.8
[2021-03-04 08:27] LABS: BAND 10 % (0-10); LYMPHOCYTE 9 % (20.0-51.0); NEUTROPHILS 76 % (42.0-75.2)
[2021-03-04 08:29] LABS: ANISOCYTOSIS 1+
--- NOTE | 2021-03-04 10:04 | NUR ---
PT RESTING IN BED. MORNING MEDICATIONS GIVEN. SHIFT ASSESSMENT COMPLETED. PUREWICK IN PLACE. PT IS CONFUSED. REPORTS LEG PAIN BILATERALLY WITH TOUCH. NO REDNESS OR SWELLING NOTED. STATES SHE THINKS SHE NEEDS TO GET UP AND MOVE AROUND. PT IN THE ROOM WITH HER AT THIS TIME. DENIES ANY NEEDS. WILL CONTINUE TO MONITOR.
--- NOTE | 2021-03-04 10:27 | NUR ---
PHYSICAL THERAPY WORKED WITH PT AND REPORTED DIARRHEA X2. WILL CONTINUE TO MONITOR.
[2021-03-04 11:35] VITALS: BP 165/58; PULSE 55; TEMP 97.5
--- NOTE | 2021-03-04 11:45 | NUR ---
The patient is COVID positive. SW attempted to contact the patient's daughter, Livia Escobedo, to complete intake. SW left her a voicemail. SW then contacted the patient's other daughter, Adeline Ruffin (ph#[phone]), to discuss discharge plan. The patient lives alone most of the time in [place]. Adeline reports that she has been staying with the patient recently and driving back and forth from her home in [place] to help the patient. Adeline states that the patient was diagnosed with cancer and just finished radiation treatment around 02/07/21. She reports that the patient is independent with ADLs and has a walker. The patient's PCP is Dr. Taiwo Shelton and she receives her medications from [facility]. The patient does not have a DPOA-HC. Adeline reports that her and her family have tried to get the patient to complete a DPOA-HC, but the patient refuses to sign anything. Adeline reports that the patient is and that she has three living children: herself, Livia Escobedo (ph#[phone]), and Nasir Horvath. OT has worked with the patient and they recommend SNF vs home with 24 hr care/supervision. JOHNY updated Adeline. JOHNY also informed Adeline that with the patient's observation status, that SNF would be private pay and if they were willing to private pay, the SNF's are not able to admit until 10 days out from when they tested positive. Adeline verbalized understanding. Adeline reports that they have been talking to the patient about assisted living, but the patient has not wanted to pay for AL. Adeline reports that she will either stay with the patient or have the patient come stay with her in [place] upon discharge. She reports that her brother would also be able to help her take care of the patient. JOHNY discussed getting home health. Adeline was not interested in home health at this time. Adeline requests that SW contact the patient and make sure the patient is okay with everything. JOHNY then contacted the patient's room phone to review the above. The patient reports that she is okay with her daughter coming to stay with her. JOHNY addressed the DPOA-HC. The patient started talking about her car and how she needs to get it fixed. SW attempted to redirect her back to the DPOA-HC. The patient would talk start talking about her car again. She then stated that she is not thinking straight right now and that she will talk to Adeline about this. SW to continue to follow. *Discharge plan: home with daughter and family support*
[2021-03-04 15:49] VITALS: BP 148/53; PULSE 71; PULSE 79; TEMP 97.8; TEMP 98
[2021-03-04 20:44] VITALS: BP 146/58; PULSE 58; TEMP 98.2
[2021-03-05 05:36] VITALS: BP 151/48; PULSE 57; TEMP 98.4
--- NOTE | 2021-03-05 05:40 | NUR ---
Patient awake all night despite Melatonin and Seroquel per MAR, confusion noted, impulsively getting out of bed, Fall precauitons in place, call kessler w/i reach, will continue to monitor.
[2021-03-05 06:40] LABS: BASO % 0.2 % (0.0-2.0); GRAN # 4.4 K/mm3 (1.4-6.5); GRAN % 86.4 % (42.2-75.2); LYMPH # 0.3 K/mm3 (1.2-3.4); LYMPH % 5.5 % (20.0-51.0); MEAN CELL VOLUME 87 fl (80.0-100.0); MEAN CORPUSCULAR HGB CONC 33 g/dl (33.0-37.0); MEAN PLATELET VOLUME 9.5 fl (7.4-10.4); MONO # 0.4 K/mm3 (0.1-0.6); MONO % 7.3 % (1.7-9.3); PLATELET COUNT 149 K/mm3 (130-400); RED BLOOD COUNT 3.33 M/mm3 (4.10-5.30)
[2021-03-05 06:41] LABS: HEMATOCRIT 28.9 % (37.0-47.0); HEMOGLOBIN 9.6 g/dl (12.5-16.0); MEAN CORPUSCULAR HEMOGLOBIN 29 pg (27.0-31.0)
[2021-03-05 06:53] LABS: ALBUMIN 2.9 gm/dL (3.4-4.8); BILIRUBIN,TOTAL 0.3 mg/dL (0.2-1.2); CALCIUM 8.8 mg/dL (8.4-10.2); CREATININE, serum 0.85 mg/dL (0.57-1.11); TOTAL PROTEIN 6.2 gm/dL (6.2-8.1)
--- NOTE | 2021-03-05 07:33 | NUR ---
REPORT RECIEVED FROM ENEDINA. NO SIGNS OR SYMPTOMS OF DISTRESS. NO COMPLAINTS AT THIS TIME. CALL LIGHT WITHIN REACH
[2021-03-05 08:57] VITALS: BP 163/57; PULSE 59; TEMP 98
--- NOTE | 2021-03-05 10:12 | NUR ---
ASSESSMENT COMPLETE. NO SIGNS/ SYMPTOMS OF DISTRESS. NO COMPLAINTS OF PAIN OR DSYPNEA. PT FINSIHED WITH BREAKFAST. REQUESTS HELP TO CALL DAUGHTER. ECHO PAGED. UPDATED ON CONCERNS. CALL PRO [facility]
--- NOTE | 2021-03-05 11:05 | NUR ---
pt was walked for approx. 6 minutes on room air maintaining an spo2 of 96% for the entire test. No oxygen was required
[2021-03-05 12:06] VITALS: BP 138/77; PULSE 65; TEMP 97.8
[2021-03-05 17:18] VITALS: BP 124/57; PULSE 60; TEMP 98.7
[2021-03-06 05:16] VITALS: BP 157/59; PULSE 56; TEMP 98.4
[2021-03-06 07:07] LABS: BASO % 0.2 % (0.0-2.0); GRAN # 3.6 K/mm3 (1.4-6.5); GRAN % 81.7 % (42.2-75.2); HEMOGLOBIN 10.1 g/dl (12.5-16.0); LYMPH # 0.3 K/mm3 (1.2-3.4); LYMPH % 7.3 % (20.0-51.0); MEAN CELL VOLUME 87 fl (80.0-100.0); MEAN CORPUSCULAR HEMOGLOBIN 28 pg (27.0-31.0); MEAN CORPUSCULAR HGB CONC 33 g/dl (33.0-37.0); MEAN PLATELET VOLUME 9.6 fl (7.4-10.4); MONO # 0.4 K/mm3 (0.1-0.6); MONO % 9.9 % (1.7-9.3); PLATELET COUNT 174 K/mm3 (130-400); RED BLOOD COUNT 3.57 M/mm3 (4.10-5.30); REDCELL DISTRIBUTION WIDTH-CV 20.8 % (11.5-14.5)
[2021-03-06 07:09] LABS: HEMATOCRIT 30.9 % (37.0-47.0)
[2021-03-06 07:24] LABS: BILIRUBIN,TOTAL 0.4 mg/dL (0.2-1.2); CALCIUM 8.9 mg/dL (8.4-10.2); CREATININE, serum 0.88 mg/dL (0.57-1.11); POTASSIUM 3.6 mmol/L (3.5-4.5); TOTAL PROTEIN 6.2 gm/dL (6.2-8.1)
[2021-03-06 08:31] VITALS: BP 166/55; PULSE 52; TEMP 98
[2021-03-06] MEDS ORDERED: PLAVIX 75MG TAB75 MG PO (09:16)
[2021-03-06] MEDS ORDERED: DECADRON6 MG PO (09:17)
[2021-03-06] MEDS ORDERED: ASPIRIN E.C. 8181 MG PO (09:17)
[2021-03-06] MEDS ORDERED: LIPITOR20 MG PO (09:19)
--- NOTE | 2021-03-06 10:42 | NUR ---
Patient alert but only oriented to person and place. Plan is for patient to discharge this afternoon. Patient has been trying to get out of bed independently to get dressed to leave since being told of her discharge. Patient remains on monitor. Patient denies any pain or SOB. Patient remains in bed at this time with call light in reach.
--- NOTE | 2021-03-06 11:23 | NUR ---
RAGINI update. RAGINI notifed of DC for patient. Ragini called Dtr Adeline about DC and offered home health care. Adeline was edcated on services with home health. Dtr reports that she wants to further discuss it with her mother first and is not sure if they need it. Dtr reports that she can be at the ER entrance in an hour and will call SW to have patient brought down to the ER entrance. Nothing follows.
--- NOTE | 2021-03-06 13:17 | NUR ---
Patient discharged by this RN. Prior to this RN discharging the patient, the patient had already been dressed in long sleeves and ready to go. This RN escorted the patient out. Approx. 5mins later this RN received notification that the IV had not been discontinued. The patient came back to the ER entrance and this RN removed the IV. IV catheter was intact. The patient and her daughter were very understanding and were not bothered by this incidence.
== END 2021-03-06 13:05 | disposition home health service (06) | DRG 177 ==
LOC: COL.ER 22:54 → MEDICAL 03-03 01:34 → COL.ER 03-03 01:34 → MEDICAL 03-03 15:09
PROVIDERS: Nurse Practitioner Family; Student in an Organized Health Care Education/Training Program; ADMIT Student in an Organized Health Care Education/Training Program
DX: U07.1 COVID-19 (principal); G93.41 Metabolic encephalopathy; I21.A1 Myocardial infarction type 2; I50.32 Chronic diastolic (congestive) heart failure; E87.1 Hypo-osmolality and hyponatremia; E87.2 Acidosis; I13.0 Hypertensive heart and chronic kidney disease with heart failure and stage 1 through stage 4 chronic kidney disease, or unspecified chronic kidney disease; E03.9 Hypothyroidism, unspecified; F03.90 Unspecified dementia, unspecified severity, without behavioral disturbance, psychotic disturbance, mood disturbance, and anxiety; I44.0 Atrioventricular block, first degree; I08.0 Rheumatic disorders of both mitral and aortic valves; D64.9 Anemia, unspecified; M19.90 Unspecified osteoarthritis, unspecified site; F32.A Depression, unspecified; E78.5 Hyperlipidemia, unspecified; R53.81 Other malaise; Z79.891 Long term (current) use of opiate analgesic; Z73.0 Burn-out; Z96.642 Presence of left artificial hip joint; Z85.3 Personal history of malignant neoplasm of breast; Z87.891 Personal history of nicotine dependence; Z88.0 Allergy status to penicillin; Z88.2 Allergy status to sulfonamides; Z88.5 Allergy status to narcotic agent; N18.9 Chronic kidney disease, unspecified
CPT/HCPCS: 99232-AI; 99233-AI; 99239; G0378; J1650; J7120; J8540; M0243; Q0244

== ENCOUNTER 2021-08-11 12:51 | Emergency (ER) | payer MEDICARE, OTHER ==
[~2021-08-11] VITALS: Ht 162.6 cm; Wt 78.6 kg
[~2021-08-11 12:51] MED LIST changes: +ASPIRIN E.C. 8181 MG PO; +DECADRON6 MG PO; +LIPITOR20 MG PO; +PLAVIX 75MG TAB75 MG PO
[2021-08-11 14:35] LABS: BASO % 0.5 % (0.0-2.0); EOS # 0.3 K/mm3 (0.0-0.7); EOS % 4.1 % (0.0-4.0); GRAN # 5.7 K/mm3 (1.4-6.5); GRAN % 75.3 % (42.2-75.2); HEMOGLOBIN 10.3 g/dl (12.5-16.0); LYMPH # 0.6 K/mm3 (1.2-3.4); LYMPH % 8.3 % (20.0-51.0); MEAN CELL VOLUME 85 fl (80.0-100.0); MEAN CORPUSCULAR HEMOGLOBIN 27 pg (27-31); MEAN CORPUSCULAR HGB CONC 31 g/dl (33.0-37.0); MEAN PLATELET VOLUME 9.5 fl (7.4-10.4); MONO # 0.8 K/mm3 (0.1-0.6); MONO % 11.1 % (1.7-9.3); PLATELET COUNT 310 K/mm3 (130-400); RED BLOOD COUNT 3.89 M/mm3 (4.10-5.30); REDCELL DISTRIBUTION WIDTH-CV 16.1 % (11.5-14.5)
[2021-08-11 14:37] LABS: HEMATOCRIT 33.1 % (37.0-47.0)
[2021-08-11 14:50] LABS: ALBUMIN 3.9 gm/dL (3.4-4.8); BILIRUBIN,TOTAL 0.4 mg/dL (0.2-1.2); CALCIUM 9.1 mg/dL (8.4-10.2); CREATININE, serum 1.38 mg/dL (0.57-1.11); TOTAL PROTEIN 7.1 gm/dL (6.2-8.1)
[2021-08-11] MEDS ORDERED: NORCO 325 MG-51 TAB PO (15:43)
[2021-08-11 16:45] VITALS: BP 131/72; PULSE 78; TEMP 98
== END 2021-08-11 16:45 | disposition home or self-care (01) ==
LOC: COL.ER 12:51
PROVIDERS: Family Medicine
DX: M19.071 Primary osteoarthritis, right ankle and foot (principal); M16.11 Unilateral primary osteoarthritis, right hip; R60.0 Localized edema

== ENCOUNTER 2022-06-23 13:24 | Emergency (ER) | payer MEDICARE, OTHER ==
[~2022-06-23] VITALS: Ht 165.1 cm; Wt 77.3 kg
[2022-06-23 13:32] VITALS: TEMP 97.7
[2022-06-23 14:40] LABS: BASO # 0.1 K/mm3 (0.0-0.2); BASO % 0.6 % (0.0-2.0); EOS # 0.1 K/mm3 (0.0-0.7); EOS % 1.5 % (0.0-4.0); GRAN # 6.4 K/mm3 (1.4-6.5); GRAN % 78.8 % (42.2-75.2); HEMATOCRIT 39.3 % (37.0-47.0); HEMOGLOBIN 13.2 g/dl (12.5-16.0); LYMPH # 0.7 K/mm3 (1.2-3.4); LYMPH % 8.7 % (20.0-51.0); MEAN CELL VOLUME 95 fl (80.0-100.0); MEAN CORPUSCULAR HEMOGLOBIN 32 pg (27-31); MEAN CORPUSCULAR HGB CONC 34 g/dl (33.0-37.0); MEAN PLATELET VOLUME 9.7 fl (7.4-10.4); MONO # 0.8 K/mm3 (0.1-0.6); MONO % 9.9 % (1.7-9.3); PLATELET COUNT 248 K/mm3 (130-400); RED BLOOD COUNT 4.12 M/mm3 (4.10-5.30); REDCELL DISTRIBUTION WIDTH-CV 14.3 % (11.5-14.5)
[2022-06-23 14:45] LABS: PROTHROMBIN TIME 11.6 SECONDS (9.7-12.8)
[2022-06-23 15:03] LABS: BILIRUBIN,TOTAL 0.5 mg/dL (0.2-1.2); CALCIUM 9.4 mg/dL (8.4-10.2); CREATININE, serum 1.59 mg/dL (0.57-1.11); POTASSIUM 4.2 mmol/L (3.5-4.5); TOTAL PROTEIN 6.9 gm/dL (6.2-8.1)
[2022-06-23 15:05] LABS: COLLECTION METHOD CLEAN CATCH
[2022-06-23 15:13] LABS: TROPONIN-I 0.03 ng/mL (0.00-0.033)
[2022-06-23 15:18] LABS: MUCOUS Present (NOT PRESENT); SQUAMOUS EPITHELIAL 0-2 /hpf (0-10); URINE BACTERIA Rare /hpf (NONE SEEN); URINE COLOR Yellow (YELLOW)
[2022-06-23 15:19] LABS: PH 5.5 (5-8); URINE APPEARANCE Hazy (CLEAR/HAZY); URINE BLOOD Negative (NEGATIVE); URINE GLUCOSE Negative (NEGATIVE); URINE KETONE Negative (NEGATIVE); URINE NITRATE Negative (NEGATIVE); URINE PROTEIN(semi-quant) Negative (NEGATIVE); URINE UROBILINOGEN 0.2 (NEGATIVE)
[2022-06-23] MEDS ORDERED: CEFTIN 250250 MG/TAB PO (15:34)
--- NOTE | 2022-06-23 15:54 | NUR ---
SW responded to consult. The patient has been having increased weakness and was unable to get out of the patient. The patient is reqesting information on assisted living. SW's met with the patient and her daughter, Adeline (ph#[phone]). The patient lives in alone in [place]. Adeline lives in [place], but comes to [place] to provide care to the patient. They also have private duty services from [employer], but they state that [employer] has not been doing their job. They have caught the workers sleeping on the job, hanging out in their vehicles, and lying about things. Adeline states that they have been looking into assisted living facilities and have the patient on the wait list at [facility]. They have also been in contact with [facility] in [place] and they will have a bed available next week. Adeline states she was informed that [facility] could take her, if the doctor signed an emergency admit order for SNF. JOHNY informed her that this SW will contact the facility, but SNF would be private pay, if she discharged from the ED. JOHNY contacted [facility]. Admissions was already out for the day. SW contacted [facility] for SNF. Admissions reports that they would need to review the patient's records and even if they could accept, would not be able to take today. JOHNY met with the patient and Adeline and updated her on the above. Adeline expressed her frustrations, but states that they will return home and keep doing what they have been. JOHNY recommended that they follow up with the patient's PCP and case management at her PCP office. JOHNY provided them with another list of local assisted living facility. Adeline states that they will contact [facility] to check into their availabilty. JOHNY updated the patient's RN.
[2022-06-23 16:01] VITALS: BP 127/53; PULSE 62
== END 2022-06-23 16:01 | disposition home or self-care (01) ==
LOC: COL.ER 13:24
PROVIDERS: Family Medicine
DX: N30.00 Acute cystitis without hematuria (principal); M25.522 Pain in left elbow; Z88.1 Allergy status to other antibiotic agents; Z28.310 Unvaccinated for COVID-19